=== PATIENT | male | born 2000 | race African-American/Black ===

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

== ENCOUNTER 2018-08-31 16:12 | Emergency (ER) | payer MEDICAID ==
[~2018-08-31] VITALS: Ht 170.2 cm; Wt 62.3 kg
[2018-08-31 16:19] VITALS: Ht 170.2 cm; Wt 62.3 kg
[2018-08-31 17:58] LABS: BASOPHILS 0.2 % (0-2); EOSINOPHILS 1.2 % (0-7); HEMATOCRIT 40.2 % (42.0-54.0); HEMOGLOBIN 13.9 g/dL (13.5-17.5); LYMPHOCYTES 16.8 % (15-50); MCH 28.5 pg (26.0-34.0); MCHC 34.6 g/dL (31.0-37.0); MCV 82.4 fL (80.0-100.0); MEAN PLATELET VOLUME 10.8 fL (7.4-10.4); MONOCYTES 13.1 % (2-11); NEUTROPHILS 68.7 % (40-80); PLATELET COUNT 152 10x3/uL (130-400); RBC 4.88 10x6/uL (4.20-6.10); RDW 12.6 % (11.5-14.5); WBC 5.1 10x3/uL (4.8-10.8)
[2018-08-31 18:23] LABS: ALBUMIN 4.2 g/dL (3.4-5.0); ALKALINE PHOSPHATASE 61 U/L (46-116); ALT (SGPT) 14 U/L (10-68); BILIRUBIN - TOTAL 2.39 mg/dL (0.2-1.3); CALC OSMOLALITY 290 mosm/kg (275-300); CALCIUM 8.5 mg/dL (8.5-10.1); CHLORIDE - SERUM 105 mmol/L (98-107); CREATININE - SERUM 1.4 mg/dL (0.6-1.3); GLUCOSE 114 mg/dL (74-106); POTASSIUM - SERUM 3.8 mmol/L (3.5-5.1); PROTEIN - SERUM 7.7 g/dL (6.4-8.2); SODIUM 146 mmol/L (136-145); UREA NITROGEN 9 mg/dL (7-18); eGFR NON AFRICAN AMERICAN 69 mL/min (90-120)
[2018-08-31 18:28] LABS: C-REACTIVE PROTEIN 2.2 mg/dL (0.0-0.9); CKMB 0.4 U/L (0.0-3.6); CREATINE KINASE 133 UL (21-232); LIPASE 105 U/L (73-393)
[2018-08-31 18:38] LABS: APPEARANCE CLEAR (CLEAR); BILIRUBIN NEGATIVE (NEGATIVE); COLOR YELLOW (YELLOW); GLUCOSE NEGATIVE (NEGATIVE); KETONE NEGATIVE (NEGATIVE); NITRITE NEGATIVE (NEGATIVE); PROTEIN NEGATIVE (NEGATIVE)
[2018-08-31] MEDS ORDERED: TAMIFLU75 MG PO (19:00)
[2018-08-31] MEDS ORDERED: TESSALON PERLE100 MG PO (19:01)
[2018-08-31 19:29] VITALS: BP 122/71
== END 2018-08-31 19:29 | disposition home or self-care (01) ==
LOC: D.ER 16:12
PROVIDERS: Family Medicine
DX: J09.X2 Influenza due to identified novel influenza A virus with other respiratory manifestations (principal); R94.5 Abnormal results of liver function studies

== ENCOUNTER 2019-11-15 21:12 | Emergency (ER) | payer SELFPAY ==
[~2019-11-15] VITALS: Ht 170.2 cm; Wt 81.8 kg
[~2019-11-15 21:12] MED LIST: TAMIFLU75 MG PO; TESSALON PERLE100 MG PO
[2019-11-15 21:14] VITALS: Ht 170.2 cm; Wt 81.8 kg
[2019-11-15 21:40] LABS: BASOPHILS 0.2 % (0-2); EOSINOPHILS 0.8 % (0-7); HEMATOCRIT 40.6 % (42.0-54.0); HEMOGLOBIN 13.9 g/dL (13.5-17.5); LYMPHOCYTES 19.4 % (15-50); MCH 28.3 pg (26.0-34.0); MCHC 34.2 g/dL (31.0-37.0); MCV 82.5 fL (80.0-100.0); MEAN PLATELET VOLUME 10.7 fL (7.4-10.4); MONOCYTES 8.2 % (2-11); NEUTROPHILS 71.4 % (40-80); PLATELET COUNT 182 10x3/uL (130-400); RBC 4.92 10x6/uL (4.20-6.10); RDW 12.7 % (11.5-14.5)
[2019-11-15 21:43] LABS: APTT 31.5 SECONDS (22.8-39.4); INR 1.13 (0.85-1.17); PROTIME 14.5 SECONDS (11.6-15.0)
[2019-11-15 21:52] LABS: CALC OSMOLALITY 281 mosm/kg (275-300); CALCIUM 8.9 mg/dL (8.5-10.1); CARBON DIOXIDE 23.7 mmol/L (21.0-32.0); CHLORIDE - SERUM 104 mmol/L (98-107); CREATININE - SERUM 1.3 mg/dL (0.6-1.3); POTASSIUM - SERUM 3.4 mmol/L (3.5-5.1); SODIUM 137 mmol/L (136-145); UREA NITROGEN 14 mg/dL (7-18); eGFR NON AFRICAN AMERICAN 74 mL/min (90-120)
[2019-11-15 21:56] LABS: GLUCOSE 224 mg/dL (74-106)
[2019-11-15 22:11] LABS: ALKALINE PHOSPHATASE 52 U/L (30-120); ALT (SGPT) 16 U/L (10-68); BILIRUBIN - TOTAL 1.45 mg/dL (0.2-1.3); CREATINE KINASE 215 UL (21-232); MAGNESIUM - SERUM 1.8 mg/dL (1.8-2.4); PROTEIN - SERUM 7.6 g/dL (6.4-8.2); THYROID STIMULATING HORMONE 0.93 uIU/mL (0.36-3.74); TROPONIN-I < 0.017 ng/mL (0.000-0.060)
[2019-11-15 22:24] LABS: BILIRUBIN NEGATIVE (NEGATIVE); GLUCOSE 250 mg/dL (NEGATIVE); KETONE NEGATIVE (NEGATIVE); NITRITE NEGATIVE (NEGATIVE); UROBILINOGEN NORMAL (NORMAL)
[2019-11-15 22:28] LABS: UDS - AMPHET NEGATIVE QUAL (NEGATIVE); UDS - BARB NEGATIVE QUAL (NEGATIVE); UDS - BENZO NEGATIVE QUAL (NEGATIVE); UDS - COCAINE NEGATIVE QUAL (NEGATIVE); UDS - OPIATE NEGATIVE QUAL (NEGATIVE); UDS - PCP NEGATIVE QUAL (NEGATIVE); UDS - THC NEGATIVE QUAL (NEGATIVE)
[2019-11-15 22:49] VITALS: BP 128/81
== END 2019-11-15 22:49 | disposition home or self-care (01) ==
LOC: D.ER 21:12
PROVIDERS: Family Medicine
DX: R55 Syncope and collapse (principal); E87.6 Hypokalemia; E11.9 Type 2 diabetes mellitus without complications

== ENCOUNTER 2020-03-13 19:59 | Inpatient (IN) | payer SELFPAY ==
[~2020-03-13] VITALS: Ht 170.2 cm; Wt 99.8 kg
[2020-03-13] MEDS ORDERED: METFORMIN HCL500 M1 PO (20:17)
[2020-03-13 20:36] LABS: BASOPHILS 0.1 % (0-2); EOSINOPHILS 0.7 % (0-7); HEMATOCRIT 42.8 % (42.0-54.0); HEMOGLOBIN 14.8 g/dL (13.5-17.5); IMMATURE GRANULOCYTES 0.3 % (0-5); LYMPHOCYTES 11.3 % (15-50); MCHC 34.6 g/dL (31.0-37.0); MCV 80.9 fL (80.0-100.0); MONOCYTES 6.7 % (2-11); NEUTROPHILS 80.9 % (40-80); RBC 5.29 10x6/uL (4.20-6.10); RDW 12.4 % (11.5-14.5)
[2020-03-13 20:38] LABS: PLATELET COUNT 222 10x3/uL (130-400)
[2020-03-13 20:52] LABS: ANION GAP 17.1 mmol/L (8-16); CARBON DIOXIDE 24.6 mmol/L (21.0-32.0); CREATININE - SERUM 1.7 mg/dL (0.6-1.3); POTASSIUM - SERUM 4.7 mmol/L (3.5-5.1)
[2020-03-13 20:55] LABS: ALBUMIN 4.9 g/dL (3.4-5.0); BILIRUBIN - TOTAL 1.55 mg/dL (0.2-1.3); MAGNESIUM - SERUM 2.3 mg/dL (1.8-2.4); PROTEIN - SERUM 9.5 g/dL (6.4-8.2)
[2020-03-13 21:30] VITALS: BP 137/87
--- NOTE | 2020-03-13 21:47 | NUR ---
ANSWERED PT'S CALL LIGHT, PT GIVEN BLANKETS, DENIES FURTHER NEEDS AT THIS TIME. CALL LIGHT IN REACH, WILL CONTINUE TO MONITOR.
[2020-03-13 23:45] VITALS: BP 139/79
--- NOTE | 2020-03-13 23:45 | NUR ---
RECEIVED PT TO FLOOR, ORIENTED TO ROOM, ON WAIT LIST FOR TELEMETRY, IV PATENT NS @125, BED LOWEST POSITION, CALL LIGHT IN REACH, DENIES NEEDS, NO S/S OF DISTRESS NOTED
[2020-03-13 23:49] VITALS: BP 139/79; BMI 34.5
[2020-03-14 05:07] VITALS: BP 139/81
[2020-03-14 06:47] LABS: BASOPHILS 0.3 % (0-2); EOSINOPHILS 1.9 % (0-7); HEMATOCRIT 40.2 % (42.0-54.0); IMMATURE GRANULOCYTES 0.1 % (0-5); LYMPHOCYTES 26.2 % (15-50); MCH 27.6 pg (26.0-34.0); MCHC 34.8 g/dL (31.0-37.0); MCV 79.1 fL (80.0-100.0); MEAN PLATELET VOLUME 11.4 fL (7.4-10.4); MONOCYTES 7.9 % (2-11); NEUTROPHILS 63.6 % (40-80); PLATELET COUNT 206 10x3/uL (130-400); RBC 5.08 10x6/uL (4.20-6.10); RDW 12.4 % (11.5-14.5); WBC 7.8 10x3/uL (4.8-10.8)
[2020-03-14 07:15] LABS: CALC OSMOLALITY 300 mosm/kg (275-300); CALCIUM 9.8 mg/dL (8.5-10.1); CARBON DIOXIDE 27.7 mmol/L (21.0-32.0); CHLORIDE - SERUM 107 mmol/L (98-107); CREATININE - SERUM 1.2 mg/dL (0.6-1.3); GLUCOSE 265 mg/dL (74-106); PHOSPHOROUS 4.3 mg/dL (2.5-4.9); POTASSIUM - SERUM 4.2 mmol/L (3.5-5.1); SODIUM 147 mmol/L (136-145); UREA NITROGEN 13 mg/dL (7-18); eGFR NON AFRICAN AMERICAN 81 mL/min (90-120)
[2020-03-14 08:12] VITALS: BP 119/81
--- NOTE | 2020-03-14 08:25 | NUR ---
PT LAYING IN BED ON LEFT SIDE UPON ENTERING ROOM. EASILY AWAKENED. LIGHTS TURNED OFF SO PT COULD SLEEP. BREAKFAST TRAY HELD SINCE BLOOD GLUCOSE WAS OVER 200. CL IN REACH. TAPED DOWN IV TO RIGHT FOREARM TO SECURE IT. WCTM
--- NOTE | 2020-03-14 10:37 | NUR ---
MOTHER STATES PT TAKES 500 MG OF METFORMIN TWICE A DAY. NOT ONCE A DAY. RESULTS OF MOST RECENT BLOOD SUGAR RESULTS 225 REPORTED TO HER. STATED THAT HE WOULD MOST LIKELY NOT BE COMING HOME TODAY. CL IN REACH. WCTM
--- NOTE | 2020-03-14 11:12 | NUR ---
TUBING LABELED PER PROTOCOL
[2020-03-14 12:16] VITALS: BP 127/88
[2020-03-14 12:30] VITALS: Ht 170.2 cm; Wt 99.8 kg
--- NOTE | 2020-03-14 13:54 | NUR ---
PT AWARE I NEED A URINE SPECIMEN. WILL NOTIFY ME WHEN HE URINATES. CL IN REACH. NO FURTHER NEEDS AT THSI TIME. KALA
--- NOTE | 2020-03-14 15:18 | NUR ---
PT LAYING IN BED WITH LIGHTS OFF. CL IN REACH. NO NEEDS AT THIS TIME. WCTM
[2020-03-14 16:20] VITALS: BP 118/89
[2020-03-14 18:41] LABS: BILIRUBIN NEGATIVE (NEGATIVE); KETONE NEGATIVE (NEGATIVE); NITRITE NEGATIVE (NEGATIVE); UROBILINOGEN NORMAL mg/dL (< 2)
--- NOTE | 2020-03-14 19:00 | NUR ---
RECEIVED REPORT, ASSUMED CARE, IV PATENT, DENIES NEEDS, NO S/S OF DISTRESS NOTED, BED LOWEST POSITION, CALL LIGHT IN REACH, A&O, WALKING AROUND ROOM, FAMILY AT BEDSIDE
[2020-03-14 20:00] VITALS: BP 126/73
[2020-03-15] VITALS: BP 123/75
[2020-03-15 04:00] VITALS: BP 119/72
[2020-03-15 06:08] LABS: BASOPHILS 0.2 % (0-2); EOSINOPHILS 3.6 % (0-7); HEMOGLOBIN 12.3 g/dL (13.5-17.5); IMMATURE GRANULOCYTES 0.2 % (0-5); LYMPHOCYTES 43.7 % (15-50); MCH 27.5 pg (26.0-34.0); MCHC 34.2 g/dL (31.0-37.0); MCV 80.4 fL (80.0-100.0); MEAN PLATELET VOLUME 11.5 fL (7.4-10.4); MONOCYTES 5.8 % (2-11); NEUTROPHILS 46.5 % (40-80); PLATELET COUNT 188 10x3/uL (130-400); RBC 4.48 10x6/uL (4.20-6.10); RDW 12.5 % (11.5-14.5); WBC 6.4 10x3/uL (4.8-10.8)
[2020-03-15 06:38] LABS: CALC OSMOLALITY 284 mosm/kg (275-300); CALCIUM 8.4 mg/dL (8.5-10.1); CARBON DIOXIDE 26.2 mmol/L (21.0-32.0); CHLORIDE - SERUM 105 mmol/L (98-107); CREATININE - SERUM 1.2 mg/dL (0.6-1.3); GLUCOSE 253 mg/dL (74-106); MAGNESIUM - SERUM 1.5 mg/dL (1.8-2.4); PHOSPHOROUS 3.6 mg/dL (2.5-4.9); SODIUM 138 mmol/L (136-145); UREA NITROGEN 12 mg/dL (7-18); eGFR NON AFRICAN AMERICAN 81 mL/min (90-120)
[2020-03-15 08:10] VITALS: BP 107/64
--- NOTE | 2020-03-15 08:16 | NUR ---
PT ASLEEP ON BACK. AVERY IN ROOM AND BED WITH PATIENT. CL IN REACH. NO CO OF PAIN. NO NEEDS AT THIS TIME. WCTM
--- NOTE | 2020-03-15 12:04 | NUR ---
SPOKE WITH MOTHER WHO HAS THE PASSWORD. ANSWERED BLOOD GLUCOSE AND MY THEORY WHY HIS BLOOD SUGAR CAME UP. STATED THE PATIENT HAD PIZZA LAST NIGHT WHICH COULD BE A REASON HIS BLOOD GLUCOSE HAS RISEN. "WELL HOW DID HE GET IT?" WAS ASKED. I REPLIED, "HIS VISITOR." PT GIVEN MEDS PER PROTOCOL. CL IN REACH. NO FURTHER NEEDS AT THIS TIME. WCTM
[2020-03-15 12:29] VITALS: BP 130/76
[2020-03-15] MEDS ORDERED: GLUCOTROL 5 MG T5 MG PO (12:32)
[2020-03-15] MEDS ORDERED: LANTUS INS100 UNITS/ SC (12:32)
[2020-03-15] MEDS ORDERED: GLUCOPHAGE500 MG PO (12:32)
--- NOTE | 2020-03-15 14:16 | NUR ---
IV THERAPY DC'ED FROM RIGHT FOREARM TIP INTACT. DISCHARGE INSTRUCTIONS GIVEN. PT VERBALIZED UNDERSTANDING. CL IN REACH. RIDE WILL BE HERE AT 1600.
--- NOTE | 2020-03-15 14:47 | NUR ---
PT STATES DIZZINESS ON WAY TO ER. STATED IT WENT AWAY. WOULD NOT LET HIM REFUSE WHEELCHAIR AFTER THAT. MET GUILLERMINA VARELA AT THE ER ENTRANCE.
== END 2020-03-15 14:50 | disposition home or self-care (01) | DRG 638 ==
LOC: D.ER 19:59 → D.MS 22:14
PROVIDERS: Family Medicine; ADMIT Emergency Medicine; ATTEND Emergency Medicine
DX: E11.65 Type 2 diabetes mellitus with hyperglycemia (principal); N17.9 Acute kidney failure, unspecified; E87.1 Hypo-osmolality and hyponatremia; E86.0 Dehydration

== ENCOUNTER 2020-11-06 05:20 | Emergency (ER) | payer SELFPAY ==
[2020-03-14 12:30] VITALS: Ht 170.2 cm; Wt 72.7 kg
[~2020-11-06] VITALS: Ht 170.2 cm; Wt 72.7 kg
[~2020-11-06 05:20] MED LIST changes: +GLUCOPHAGE500 MG PO; +GLUCOTROL 5 MG T5 MG PO; +LANTUS INS100 UNITS/ SC; +METFORMIN HCL500 M1 PO
[2020-11-06 05:25] VITALS: BP 126/84
[2020-11-06] MEDS ORDERED: PROAIR HFA8.5 G1 INH (05:36)
[2020-11-06 07:00] LABS: ANION GAP 11.9 mmol/L (8-16); CARBON DIOXIDE 30.4 mmol/L (21.0-32.0); CREATININE - SERUM 1.3 mg/dL (0.6-1.3); POTASSIUM - SERUM 4.3 mmol/L (3.5-5.1)
[2020-11-06 07:04] LABS: BASOPHILS 0.4 % (0-2); EOSINOPHILS 7.2 % (0-7); HEMATOCRIT 38.4 % (42.0-54.0); HEMOGLOBIN 13.1 g/dL (13.5-17.5); IMMATURE GRANULOCYTES 0.2 % (0-5); LYMPHOCYTE ABS# 2.15 10x3/uL (1.32-3.57); LYMPHOCYTES 40.5 % (15-50); MCH 27.2 pg (26.0-34.0); MCHC 34.1 g/dL (31.0-37.0); MCV 79.7 fL (80.0-100.0); MEAN PLATELET VOLUME 11.5 fL (7.4-10.4); MONOCYTES 8.7 % (2-11); NEUTROPHIL ABS# 2.29 10x3/uL (1.78-5.38); PLATELET COUNT 195 10x3/uL (130-400); RBC 4.82 10x6/uL (4.20-6.10); RDW 12.5 % (11.5-14.5); WBC 5.3 10x3/uL (4.8-10.8)
[2020-11-06 07:13] LABS: ALBUMIN 4.1 g/dL (3.4-5.0); BILIRUBIN - TOTAL 1.36 mg/dL (0.2-1.3); PROTEIN - SERUM 7.9 g/dL (6.4-8.2)
== END 2020-11-06 07:30 | disposition home or self-care (01) ==
LOC: D.ER 05:20
PROVIDERS: Family Medicine
DX: J98.01 Acute bronchospasm (principal); E11.9 Type 2 diabetes mellitus without complications; Z79.84 Long term (current) use of oral hypoglycemic drugs; R06.02 Shortness of breath